=== PATIENT | male | born 1970 | race African-American/Black ===

== ENCOUNTER 2023-05-28 14:56 | Outpatient (RCR) | payer OTHER, SELFPAY | END 2023-08-12 09:00 | disposition home or self-care (01) | LOC: PT 14:56 | PROVIDERS: Family Provider Family Medicine; PCP Family Medicine; Visit Provider Orthopaedic Surgery | DX: Z98.890 Other specified postprocedural states (principal) | CPT/HCPCS: 97110; 97112; 97140; 97161 ==

== ENCOUNTER 2023-08-13 10:17 | Outpatient (RCR) | payer OTHER, SELFPAY | END 2023-09-07 10:06 | disposition home or self-care (01) | LOC: PT 10:17 | PROVIDERS: Family Provider Family Medicine; PCP Family Medicine; Visit Provider Orthopaedic Surgery | DX: Z98.890 Other specified postprocedural states (principal); M25.511 Pain in right shoulder | CPT/HCPCS: 97110; 97112; 97140 ==

== ENCOUNTER 2024-01-20 00:22 | Emergency (ER) | payer OTHER, SELFPAY ==
[2024-01-20 00:30] VITALS: BP 172/87; PULSE 87; TEMP 37.1; O2SAT 95; BMI 39.1
--- OUTSIDE RECORDS SUMMARY | 2024-01-20 00:30 | XMS_ITS | CCD ---
Author Organization [facility] CliniSyne Care Team Providers Care Mba Intern Name Role Phone SHAHLA BUTCHER Unavailable Unavailable NO FAMILY DOCTOR, NO FAMILY DOCTOR Unavailable Unavailable Salvador Marx Jr. Unavailable Rylee Berger Unavailable Salvador Marx Unavailable Bunsamy, DO Gore Primary Care Provider Bunting, DO Luisana Attending Provider LUISANA STUBBS Primary Care Physician Sharmila Russo Unavailable Unavailable Brown, Kwasi A Referring Unavailable Brown, Kwasi A Admitting Unavailable Brown, Kwasi A Attending Unavailable Brown, Kwasi A Referring Unavailable Brown, Kwasi A Admitting Unavailable Brown, Kwasi A Attending Unavailable BROWN, KWASI A Attending Unavailable BROWN, KWASI A Attending Unavailable Bunting, DO Gore Primary Care Provider Bunting, DO Luisana Attending Provider Bunting, Luisana Primary Care Unavailable Bunting, Luisana Admitting Unavailable Bunting, Luisana Attending Unavailable Bunting, Luisana Primary Care Unavailable Bunting, Luisana Admitting Unavailable Bunting, Luisana Attending Unavailable Bunting, Luisana Admitting Unavailable Bunting, Luisana Attending Unavailable Bunting, Luisana Primary Care Unavailable Medications Current Medications Medication Drug Class(es) Dates Sig (Normalized) Sig (Original) acetaminophen 325 mg / oxyCODONE hydrochloride 5 mg oral tablet (1 source) Opioid Agonist Start: 04-13-2023 Percocet 5 mg-325 mg oral tablet See Instructions, 40 tab(s), Refill(s) 0, 1-2 tab(s) Oral q4hr, [facility]/pharmacy #[id number], 180, cm, 03/26/23 12:11:00 EDT, Height/Length Dosing, 120, kg, 03/26/23 12:11:00 EDT, Weight Dosing Start Date: 04/13/23 Status: Ordered celecoxib 100 mg oral capsule (1 source) Nonsteroidal Anti-inflammatory Drug Start: 04-13-2023 take 1 capsule by mouth twice daily as needed for pain CeleBREX 100 mg Cap 100 mg = 1 cap(s), Oral, BID, PRN for pain, # 60 cap(s), Refills(s) 0, Pharmacy: [facility]/pharmacy #[id number], 180, cm, 03/26/23 12:11:00 EDT, Height/Length Dosing, 120, kg, 03/26/23 12:11:00 EDT, Weight Dosing Start Date: 04/13/23 Status: Ordered Daily Multi (2 sources) Start: 03-26-2023 take 1 tablet by mouth once daily Daily Multi 1 tab(s), Oral, Daily, Refill(s) 0, Prophylaxis Start Date: 03/26/23 Status: Ordered docusate sodium 100 mg oral capsule (1 source) Start: 04-13-2023 take 1 capsule by mouth twice daily as needed for constipation Colace 100 mg Cap 100 mg = 1 cap(s), Oral, BID, PRN for constipation, # 20 cap(s), Refills(s) 0, Pharmacy: [facility]/pharmacy #[id number], 180, cm, 03/26/23 12:11:00 EDT, Height/Length Dosing, 120, kg, 03/26/23 12:11:00 EDT, Weight Dosing Start Date: 04/13/23 Status: Ordered QUEtiapine 200 mg oral tablet (2 sources) Atypical Antipsychotic Start: 03-26-2023 take 1 tablet by mouth at bedtime quetiapine 200 mg Tab 200 mg = 1 tab(s), Oral, Bedtime, Refills(s) 0, Sleep Start Date: 03/26/23 Status: Ordered traZODone hydrochloride 50 mg oral tablet (15 sources) Serotonin Reuptake Inhibitor Start: 03-26-2023 take 1 tablet by mouth once daily at bedtime traZODONE 50 mg Tab 50 mg = 1 tab(s), Oral, Once a day (at bedtime), Refills(s) 0, Sleep Start Date: 03/26/23 Status: Ordered traZODone HCl 50 MG TAKE 2 TABLETS BY MOUTH EVERY DAY AT BEDTIME NEEDED FOR 90 DAYS for 90 days Active take 1 tablet by christina th once daily at bedtime as needed for sleep, then take 1 tablet by mouth once daily as needed for sleep traZODone HCl 50 MG TAKE 1 TABLET BY CHRISTINA TH EVERY DAY AT BEDTIME NEEDED FOR SLEEP MAY INCREASE TO 1 & 1/2 TABS p.o. qd prn for 90 day(s) Active traZODone HCl 50 MG 1.5 mg prn for 30 Active Problems Active Problems Problem Classification Problem Date Documented Da te Episodic/Chronic Disorders of lipid metabolism (19 sources) Hyperlipidemia; Translations: [Hyperlipidemia, unspecified] Onset: 05-09-2021 Resolved: 12-21-2021 Chronic Other nutritional; endocrine; and metabolic disorders (20 sources) Obesity; Translations: [Obesity, unspecified] Chronic Other nutritional; endocrine; and metabolic disorders (13 sources) Body mass index 30+ - obesity; Translations: [Body mass index (BMI) 37.0-37.9, adult] Chronic Other nutritional; endocrine; and metabolic disorders (11 sources) Obesity, unspecified; Translations: [Obesity (BMI 35.0-39.9 without comorbidity) E66.9] Onset: 05-09-2021 Resolved: 03-01-2022 Chronic Other nutritional; endocrine; and metabolic disorders (4 sources) Body mass index (BMI) 37.0-37.9, adult; Translations: [BMI 37.0-37.9, adult Z68.37] Onset: 06-01-2021 Resolved: 11-08-2021 Chronic Other nutritional; endocrine; and metabolic disorders (1 source) Body mass index (BMI) 34.0-34.9, adult Onset: 03-01-2022 Resolved: 03-01-2022 Chronic Residual codes; unclassified (13 sources) Sedative, hypnotic AND/OR anxiolytic-induced sleep disorder; 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 Residual codes; unclassified (13 sources) Insomnia; Translations: [Insomnia, unspecified] Episodic Residual codes; unclassified (6 sources) Insomnia, unspecified; Translations: [Insomnia G47.00] Onset: 05-09-2021 Resolved: 12-21-2021 Episodic Unclassified (2 sources) Encounter for pre-employment examination / Z02.1(ICD-9) Onset: 10-15-2017 Unclassified (1 source) Pure hypercholesterolemi a, unspecified / E78.00(ICD-9) Onset: 10-15-2017 Unclassified (1 source) Family hx of ischem heart dis and oth dis of the circ sys / Z82.49(ICD-9) Onset: 10-15-2017 Unclassified (1 source) Pain in right shoulder; Translations: [Pain in right shoulder] Onset: 02-07-2023 Past or Other Problems Problem Classification Problem Date Documented Da te Episodic/Chronic Unclassified (1 source) Encounter for pre-employment examination; Translations: [Encounter for pre-employment examination] Onset: 10-15-2017 Results Test Name Value Interpretation Reference Range Facility Free T4 (Free Thyroxine)Orde red By: Luisana Stubbs on 01-15-2024 Free T4 [Mass/Vol] 0.68 ng/dL Normal 0.61-1.12 [facility] Comment on above: Performed By: #### T 4F, TSH3 #### [address] Thyroid Stimulating HormoneO rdered By: Luisana Stubbs on 01-15-2024 TSH Qn 2.49 m[IU]/L Normal 0.45-5.33 [facility] Comment on above: Result Comment: PERF ORMED BY: [place] [address] PATHOLOGIST MANAGER AGENCY MENG HILTON M.D. Performed By: #### T 4F, TSH3 #### [place] [address] [place] Alanine aminotransferase [En zymatic activity/volume] in Serum or PlasmaOrdered By: Luisana Stubbs on 01-08-2024 ALT [Catalytic activity/Vol] 19 U/L Normal 7-52 [facility] Comment on above: Performed By: #### L IPID, CBC, CMP, PSAS #### [facility] [address] [place], [place] [id number] [place] Albumin [Mass/volume] in Ser um or Plasma by Bromocresol green (BCG) dye binding methoOrdered By: Luisana Bunting on 01-08-2024 Albumin BCG dye [Mass/Vol] 4.5 g/dL 3.5-5.7 [facility] Alkaline phosphatase [Enzyma tic activity/volume] in Serum or PlasmaOrdered By: Luisana Bunting on 01-08-2024 ALP [Catalytic activity/Vol] 82 U/L Normal 34-104 [facility] Comment on above: Performed By: #### L IPID, CBC, CMP, PSAS #### [facility] [address] [place] [address] Aspartate aminotransferase [ Enzymatic activity/volume] in Serum or PlasmaOrdered By: Luisana Bunting on 01-08-2024 AST [Catalytic activity/Vol] 22 U/L Normal 13-39 [facility] Comment on above: Performed By: #### L IPID, CBC, CMP, PSAS #### [facility] [address] [place] [address] Automated basophil %Ordered By: Luisana Bunting on 01-08-2024 Basophils/100 WBC (Bld) 0.6 % Normal . [facility] Comment on above: Performed By: #### L IPID, CBC, CMP, PSAS #### [facility] [address] [place] [address] Automated basophil countOrde red By: Luisana Bunting on 01-08-2024 Basophils (Bld) [#/Vol] 0.0 10*3/uL Normal 0.0-0.2 [facility] Comment on above: Result Comment: PERF ORMED BY: [place] [address] PATHOLOGIST MANAGER AGENCY MENG HILTON M.D. Performed By: #### L IPID, CBC, CMP, PSAS #### [address] Automated blood monocyte cou ntOrdered By: Luisana Bunting on 01-08-2024 Monocytes (Bld) [#/Vol] 0.4 10*3/uL Normal 0.0-0.8 [facility] Comment on above: Performed By: #### L IPID, CBC, CMP, PSAS #### [address] Automated eosinophil %Ordere d By: Luisana Bunting on 01-08-2024 Eosinophils/100 WBC (Bld) 1.5 % Normal . [facility] Comment on above: Performed By: #### L IPID, CBC, CMP, PSAS #### [address] Automated eosinophil countOr dered By: Luisana Bunting on 01-08-2024 Eosinophils (Bld) [#/Vol] 0.1 10*3/uL Normal 0.0-0.45 [facility] Comment on above: Performed By: #### L IPID, CBC, CMP, PSAS #### [address] Automated monocyte %Ordered By: Luisana Bunting on 01-08-2024 Monocytes/100 WBC (Bld) 10.8 % Normal . [facility] Comment on above: Performed By: #### L IPID, CBC, CMP, PSAS #### [address] Automated neutrophil %Ordere d By: Luisana Bunting on 01-08-2024 Neutrophils/100 WBC (Bld) 36.8 % Normal . [facility] Comment on above: Performed By: #### L IPID, CBC, CMP, PSAS #### [address] Bilirubin.total [Mass/volume ] in Serum or PlasmaOrdered By: Luisana Bunting on 01-08-2024 Bilirubin [Mass/Vol] 0.4 mg/dL Normal 0.3-1.0 [facility] Comment on above: Performed By: #### L IPID, CBC, CMP, PSAS #### [address] Calcium [Mass/volume] in Ser um or PlasmaOrdered By: Luisana Bunting on 01-08-2024 Calcium [Mass/Vol] 9.1 mg/dL Normal 8.6-10.3 [facility] Comment on above: Performed By: #### L IPID, CBC, CMP, PSAS #### [facility] [address] [place] [address] [place] Carbon dioxide, total [Moles /volume] in Serum or PlasmaOrdered By: Luisana Bunting on 01-08-2024 CO2 [Moles/Vol] 28.9 mmol/L Normal 21.0-31.0 [facility] Comment on above: Performed By: #### L IPID, CBC, CMP, PSAS #### [facility] [address] [place] [address] [place] Chloride [Moles/volume] in S johny or PlasmaOrdered By: Luisana Bunting on 01-08-2024 Chloride [Moles/Vol] 104 mmol/L Normal 98-107 [facility] Comment on above: Performed By: #### L IPID, CBC, CMP, PSAS #### [facility] [address] [place] [address] [place] Cholesterol [Mass/volume] in Serum or PlasmaOrdered By: Luisana Bunting on 01-08-2024 Cholesterol [Mass/Vol] 210 mg/dL High 140-200 [facility] Comment on above: Chol less than 200 m g/dl low riskChol 201-239 mg/dl borderline riskChol 240 mg/dl and greater high risk Result Comment: Chol less than 200 mg/dl low risk Chol 201-239 mg/dl borderline risk Chol 240 mg/dl and greater high risk Performed By: #### L IPID, CBC, CMP, PSAS #### [facility] [address] [place] [address] [place] Cholesterol in LDL Calc [Mas s/Vol]Ordered By: Luisana Bunting on 01-08-2024 Cholesterol in LDL [Mass/Vol] 131 mg/dL 0-100 [facility] Comment on above: LDL ATP III CLASSIFI CATIONLDL less than 100 mg/dL OptimalLDL 100-129 mg/dL Near or above optimalLDL 130-159 mg/dL Borderline highLDL 160-189 mg/dL HighLDL greater than 189 mg/dL Very high Cholesterol in VLDL Calc [Ma ss/Vol]Ordered By: Luisana Bunting on 01-08-2024 Cholesterol in VLDL [Mass/Vol] 11 mg/dL [facility] Complete Blood Count Auto Di ffon 01-08-2024 Mean Corpuscular HGB Conc 33.7 g/dL Normal 32.5-35.6 [facility] Comment on above: Performed By: #### L IPID, CBC, CMP, PSAS #### [address] NRBC% 0.1 /100{WBC} Normal 0-0.5 [facility] Comment on above: Performed By: #### L IPID, CBC, CMP, PSAS #### [address] Comprehensive Metabolic Pane yaya 01-08-2024 Albumin [Mass/Vol] 4.5 g/dL Normal 3.5-5.7 [facility] Comment on above: Performed By: #### L IPID, CBC, CMP, PSAS #### [address] GFR/1.73 sq M.predicted MDRD (S/P/Bld) [Vol rate/Area] mL/min/{1.73_m2} Normal [facility] Comment on above: Performed By: #### L IPID, CBC, CMP, PSAS #### [address] Creatinine [Mass/volume] in Serum or PlasmaOrdered By: Luisana Bunting on 01-08-2024 Creatinine [Mass/Vol] 1.06 mg/dL Normal 0.70-1.30 [facility] Comment on above: Performed By: #### L IPID, CBC, CMP, PSAS #### [address] Erythrocyte distribution wid th [Ratio] by Automated countOrdered By: Luisana Bunting on 01-08-2024 Erythrocyte distribution width (RBC) [Ratio] 14.2 % Normal 12.0-14.8 [facility] Comment on above: Performed By: #### L IPID, CBC, CMP, PSAS #### [facility] [address] Erythrocytes [#/volume] in B lood by Automated countOrdered By: Luisana Stubbs on 01-08-2024 RBC (Bld) [#/Vol] 4.26 10*6/uL Normal 3.90-5.60 [facility] Comment on above: Performed By: #### L IPID, CBC, CMP, PSAS #### [address] Glucose [Mass/volume] in Ser um or PlasmaOrdered By: Luisana Stubbs on 01-08-2024 Glucose [Mass/Vol] 97 mg/dL Normal 70-100 [facility] Comment on above: ADA recommended refe rence rangeRandom Glucose Reference Range is dependent on time and content of last meal. Glucose of more than 200 mg/dL in a nonstressed, ambulatory subject supports the diagnosis of Diabetes Mellitus. Result Comment: [place] om Glucose Reference Range is dependent on time and content of last meal. Glucose of more than 200 mg/dL in a nonstressed, ambulatory subject supports the diagnosis of Diabetes Mellitus. ADA recommended reference range Performed By: #### L IPID, CBC, CMP, PSAS #### [address] Hematocrit [Volume Fraction] of Blood by Automated countOrdered By: Luisana Stubbs on 01-08-2024 Hematocrit (Bld) [Volume fraction] 39.4 % Normal 38.8-50.0 [facility] Comment on above: Performed By: #### L IPID, CBC, CMP, PSAS #### [address] Hemoglobin [Mass/volume] in BloodOrdered By: Luisana Stubbs on 01-08-2024 Hemoglobin (Bld) [Mass/Vol] 13.3 g/dL Normal 13.0-17.0 [facility] Comment on above: Performed By: #### L IPID, CBC, CMP, PSAS #### [place] [address] [place] Leukocytes [#/volume] correc margie for nucleated erythrocytes in Blood by Automated counOrdered By: Luisana Stubbs on 01-08-2024 WBC corrected for nucl RBC Auto (Bld) [#/Vol] 4.1 10*3/uL 4.1-10.5 [facility] Leukocytes [#/volume] in Blo od by Automated countOrdered By: Luisana Stubbs on 01-08-2024 WBC (Bld) [#/Vol] 4.1 10*3/uL Normal 4.1-10.5 [facility] Comment on above: Performed By: #### L IPID, CBC, CMP, PSAS #### [facility] [address] Lipid Panelon 01-08-2024 LDL Cholesterol,Calculated 131 mg/dL High 0-100 [facility] Comment on above: Result Comment: LDL ATP III CLASSIFICATION LDL less than 100 mg/dL Optimal LDL 100-129 mg/dL Near or above optimal LDL 130-159 mg/dL Borderline high LDL 160-189 mg/dL High LDL greater than 189 mg/dL Very high Performed By: #### L IPID, CBC, CMP, PSAS #### [facility] [address] Triglyceride w/Reflex 55 mg/dL Normal 0-149 [facility] Comment on above: Result Comment: TRIG ATP III CLASSIFICATION TRIG less than 150 mg/dL Normal TRIG 150-199 mg/dL Borderline high TRIG 200-500 mg/dL High TRIG greater than 500 mg/dL Very high Standard traceable to the Center for Disease Conrtrol and Prevention (CDC) test method. Performed By: #### L IPID, CBC, CMP, PSAS #### [facility] [address] VLDL CHOLESTEROL 11 mg/dL Normal [facility] Comment on above: Performed By: #### L IPID, CBC, CMP, PSAS #### [facility] [address] Lymphocytes [#/volume] in Bl ood by Automated countOrdered By: Luisana Stubbs on 01-08-2024 Lymphocytes (Bld) [#/Vol] 2.0 10*3/uL Normal 1.00-4.8 [facility] Comment on above: Performed By: #### L IPID, CBC, CMP, PSAS #### [address] Lymphocytes/100 leukocytes i n Blood by Automated countOrdered By: Luisana Bunting on 01-08-2024 Lymphocytes/100 WBC (Bld) 50.3 % Normal . [facility] Comment on above: Performed By: #### L IPID, CBC, CMP, PSAS #### [address] MCH [Entitic mass] by Automa margie countOrdered By: Luisana Bunting on 01-08-2024 MCH (RBC) [Entitic mass] 31.1 pg Normal 27.5-35.2 [facility] Comment on above: Performed By: #### L IPID, CBC, CMP, PSAS #### [address] MCHC Auto (RBC) [Mass/Vol]Or dered By: Luisana Bunting on 01-08-2024 MCHC (RBC) [Mass/Vol] 33.7 g/dL 32.5-35.6 [facility] MCV [Entitic volume] by Auto mated countOrdered By: Luisana Bunting on 01-08-2024 MCV (RBC) [Entitic vol] 92.4 fL Normal 83.5-101 [facility] Comment on above: Performed By: #### L IPID, CBC, CMP, PSAS #### [address] Neutrophils [#/volume] in Bl ood by Automated countOrdered By: Luisana Bunting on 01-08-2024 Neutrophils (Bld) [#/Vol] 1.5 10*3/uL Low 1.8-7.7 [facility] Comment on above: Performed By: #### L IPID, CBC, CMP, PSAS #### [address] No Panel InformationOrdered By: Luisana Bunting on 01-08-2024 Estimated GFR (CKD-EPI) > 60.0 mL/Min [facility] Creatinine Clearance (Chem N/A [facility] Nucleated erythrocytes [Pres ence] in Blood by Automated countOrdered By: Luisana Stubbs on 01-08-2024 Nucleated RBC Auto Ql (Bld) 0.1 /100{WBC} 0-0.5 [facility] PSA Screen (Yearly Only)on 0 01-08-2024 PSA Screen (Yearly Only) 0.410 ng/mL Normal 0.000-4.000 [facility] Comment on above: Order Comment: Is pa tient <50 yrs? Medicare does not pay <50.: N What is the date of the last PSA Screen?: 09/17/2017 Is Medicare the insurance?: N Did you verify eligibility (Dx Time) check TestViewGp: YES TO ALL Result Comment: Seri al tumor marker results determined by assays using different manufacturers or methods may not be comparable. [facility] urban redevelopment specialist and method: Rea[employer]ync DXI, CHEMILUMINESCENT IMMUNOASSAY. PERFORMED BY: [place] [address] PATHOLOGIST MANAGER AGENCY MENG HILTON M.D. Performed By: #### L IPID, CBC, CMP, PSAS #### [address] Platelet mean volume [Entiti c volume] in Blood by Automated countOrdered By: Luisana Stubbs on 01-08-2024 Platelet mean volume (Bld) [Entitic vol] 8.1 fL Normal 6.6-10.1 [facility] Comment on above: Performed By: #### L IPID, CBC, CMP, PSAS #### [facility] [address] [place] [address] Platelets [#/volume] in Bloo d by Automated countOrdered By: Luisana Stubbs on 01-08-2024 Platelets (Bld) [#/Vol] 225 10*3/uL Normal 150-450 [facility] Comment on above: Performed By: #### L IPID, CBC, CMP, PSAS #### [facility] [address] [place] [address] Potassium [Moles/volume] in Serum or PlasmaOrdered By: Luisana Bunting on 01-08-2024 Potassium [Moles/Vol] 3.9 mmol/L Normal 3.5-5.1 [facility] Comment on above: Performed By: #### L IPID, CBC, CMP, PSAS #### [facility] [address] [place] [address] Prostate specific Ag [Mass/v olume] in Serum or PlasmaOrdered By: Luisana Bunting on 01-08-2024 Prostate specific Ag [Mass/Vol] 0.410 ng/mL 0.000-4.000 [facility] Comment on above: Serial tumor marker results determined by assays using different manufacturers or methods may not be comparable.[facility] urban redevelopment specialist and method:Re[employer]ync DXI, CHEMILUMINESCENT IMMUNOASSAY. Protein [Mass/volume] in Ser um or PlasmaOrdered By: Luisana Bunting on 01-08-2024 Protein [Mass/Vol] 7.0 g/dL Normal 6.4-8.9 [facility] Comment on above: Performed By: #### L IPID, CBC, CMP, PSAS #### [address] Serum globulin measurement b y calculation (mass/volume)Ordered By: Luisana Bunting on 01-08-2024 Globulin (S) [Mass/Vol] 2.5 g/dL Normal [facility] Comment on above: Performed By: #### L IPID, CBC, CMP, PSAS #### [facility] [address] [place] [address] Serum or plasma albumin/glob ulin mass ratioOrdered By: Luisana Bunting on 01-08-2024 Albumin/Globulin [Mass ratio] 1.8 {ratio} Normal [facility] Comment on above: Performed By: #### L IPID, CBC, CMP, PSAS #### [facility] [address] [place] [address] Serum or plasma anion gap de terminationOrdered By: Luisana Bunting on 01-08-2024 Anion gap [Moles/Vol] 11.0 mmol/L Normal 6.0-15.0 [facility] Comment on above: Performed By: #### L IPID, CBC, CMP, PSAS #### [facility] [address] [place] [address] Serum or plasma high density lipoprotein (HDL) cholesterol measurementOrdered By: Luisana Bunting on 01-08-2024 Cholesterol in HDL [Mass/Vol] 68 mg/dL Normal 23-92 [facility] Comment on above: HDL CHOL ATP-III CLA SSIFICATION Cardiovascular RiskHDL > or equal to 60 mg/dL LOWHDL < 40 mg/dL HIGH Result Comment: HDL CHOL ATP-III CLASSIFICATION Cardiovascular Risk HDL > or equal to 60 mg/dL LOW HDL < 40 mg/dL HIGH Performed By: #### L IPID, CBC, CMP, PSAS #### [address] Serum or plasma total choles terol/high density lipoprotein (HDL) cholesterol mass ratOrdered By: Luisana Bunting on 01-08-2024 Cholesterol.total/Ana sterol in HDL [Mass ratio] 3.1 {ratio} Normal <5.0 [facility] Comment on above: Result Comment: PERF ORMED BY: [place] [address] PATHOLOGIST MANAGER AGENCY MENG HILTON M.D. Performed By: #### L IPID, CBC, CMP, PSAS #### [facility] [address] [place] [address] Sodium [Moles/volume] in Ser um or PlasmaOrdered By: Luisana Bunting on 01-08-2024 Sodium [Moles/Vol] 140 mmol/L Normal 136-145 [facility] Comment on above: Performed By: #### L IPID, CBC, CMP, PSAS #### [facility] [address] [place] [address] Triglyceride [Mass/volume] i n Serum or PlasmaOrdered By: Luisana Bunting on 01-08-2024 Triglyceride [Mass/Vol] 55 mg/dL 0-149 [facility] Comment on above: TRIG ATP III CLASSIF ICATIONTRIG less than 150 mg/dL NormalTRIG 150-199 mg/dL Borderline highTRIG 200-500 mg/dL High TRIG greater than 500 mg/dL Very highStandard traceable to the Center for Disease Conrtrol and Prevention (CDC) test method. Urea nitrogen [Mass/volume] in Serum or PlasmaOrdered By: Luisana Stubbs on 01-08-2024 Urea nitrogen [Mass/Vol] 15 mg/dL Normal 7-25 [facility] Comment on above: Performed By: #### L IPID, CBC, CMP, PSAS #### [facility] [address] [place] [id number] [facility] Operative Reporton 3 Operative Report Patient: MAGAN LYNN Age: 52 years Sex: Male : 1970 Associated Diagnoses: None Author: MD Topher, Xochitl Boyce Postoperative Information Date/ Time: 04/13/2023 07:00:00 Preoperative Diagnosis: Acute postoperative pain., Per surgeon request for post-op pain management. Postoperative Diagnosis: Acute postoperative pain, Per surgeon request for post-op pain management. Procedure: Interscalene nerve block. Anesthesia Method: Local, Monitored anesthesia care. Performed by: MD Obando Ahmad F. Medications: Midazolam 2 mg. Complications: None. Notes: The patient was interviewed and examined prior to the planned operation. Anesthesia options were discussed including the peripheral nerve block of the brachial plexus in the interscalene region for postoperative analgesia. This discussion included a description of the procedure, risks and benefits, as well as alternatives to the block. The patient's questions were addressed and the patient elected to proceed with the interscalene nerve block. After a timeout, the patient was placed in the recumbent position and monitored with continuous pulse oximetry, non-invasive blood pressure, and electrocardiography. Following the time-out, the patient's pertinent anatomic landmarks were identified and marked with a felt-tipped pen before the procedure. The lateral neck and upper shoulder were prepped with CHG and sterilely draped. A 2 x 22 gauge Stimuplex needle was introduced under ultrasound guidance with a stimulator attached and operating. The patient was questioned intermittently and reported no paresthesias. With the needle held in place, and with intermittent attempts for aspiration of blood, 20 cc of 0.5% Ropivacaine was injected at 5cc intervals. Negative aspiration for blood was confirmed at every 5cc interval. Loss of twitch was observed at 0.4 mA. No signs or symptoms of intravascular or intraneural injection were evidenced. The patient tolerated the procedure well without complications. . [facility] Comment on above: Result Comment: Elec tronically Signed By: MD Obando Ahmad F\.br\Date and Time Signed: 04/19/23 13:14 EDT Progress Note-Physicianon Progress Note-Physician Patient: MAGAN LYNN Age: 52 years Sex: Male : 1970 Associated Diagnoses: None Author: MD Obando Ahmad F Postoperative Information Postoperative disposition: Postoperative disposition: To PACU. Optimetrix number: Optimetrix number [id number]. Anesthetic utilized: General. Health Status Allergies: Allergic Reactions (Selected) No Known Allergies Physical Examination VS/Measurements Pain Assessment: Controlled. General: Awake, Alert, Appropriate. Respiratory: Adequate air exchange. Cardiovascular: Stable, Normal peripheral perfusion. Neurological: Normal sensory function, Normal motor function. Assessment Anesthetic outcome No anesthetic complications noted. Adequate pain relief. able to void without difficulty, able to ambulate with assist, tolerating PO intake, no N/V. Review / Management Condition: Stable. Plan Transfer/Discharge: Transfer/Discharge Discharge when meets criteria ( To home ). [facility] Comment on above: Result Comment: Elec tronically Signed By: MD Obando Ahmad F\.br\Date and Time Signed: 04/19/23 13:16 EDT Progress Note-Physician Patient: MAGAN LYNN Age: 52 years Sex: Male : 1970 Associated Diagnoses: None Author: MD Obando Ahmad F Preoperative Information Time patient last ate or drank:=== (npo 8 hours) Anesthesia history: Patient history: No prior anesthesia problems. Re-evaluation prior to induction: Completed, Initial evaluation reviewed. Review of Systems Respiratory: No shortness of breath. Cardiovascular: No chest pain. Hematology/Lymphatics : No bruising tendency, No bleeding tendency. Health Status Allergies: Allergic Reactions (All) No Known Allergies Current medications: (Selected) Prescriptions Prescribed CeleBREX 100 mg Cap: 100 mg = 1 cap(s), Oral, BID, PRN for pain, # 60 cap(s), Refills(s) 0, [id number] 180, cm, 03/26/23 12:11:00 EDT, Height/Length Dosing, 120, kg, 03/26/23 12:11:00 EDT, Weight Dosing Colace 100 mg Cap: 100 mg = 1 cap(s), Oral, BID, PRN for constipation, # 20 cap(s), Refills(s) 0, [id number], 180, cm, 03/26/23 12:11:00 EDT, Height/Length Dosing, 120, kg, 03/26/23 12:11:00 EDT, Weight Dosing Percocet 5 mg-325 mg oral tablet: See Instructions, 40 tab(s), Refill(s) 0, 1-2 tab(s) Oral q4hr, [facility]/pharmacy #[id number], 180, cm, 03/26/23 12:11:00 EDT, Height/Length Dosing, 120, kg, 03/26/23 12:11:00 EDT, Weight Dosing Documented Medications Documented Daily Multi: 1 tab(s), Oral, Daily, Refill(s) 0, Prophylaxis quetiapine 200 mg Tab: 200 mg = 1 tab(s), Oral, Bedtime, Refills(s) 0, Sleep traZODONE 50 mg Tab: 50 mg = 1 tab(s), Oral, Once a day (at bedtime), Refills(s) 0, Sleep Problem list: No problem items selected or recorded. Histories Past Medical History: No active or resolved past medical history items have been selected or recorded. Family History: No family history items have been selected or recorded. Procedure history: Rotator cuff repair ([id number]) on 04/13/2023 at 52 Years. Testicular torsion ([id number]). Social History Social & Psychosocial Habits Alcohol 03/26/2023 Risk Assessment: Low Risk 03/26/2023 Use: Current Type: Beer Frequency: 1-2 times per week Tobacco 03/26/2023 Risk Assessment: Denies Tobacco Use . Physical Examination Please see preop flow sheet Airway: Mallampati classification: II (soft palate, fauces, uvula visible). Respiratory: Lungs are clear to auscultation. Cardiovascular: Normal rate, Regular rhythm. Neurologic: Alert. Review / Management Results review Interpretation of Outside Results Chest x-ray results Radiology results ECG interpretation Condition Plan [place] [employer] (ASA) physical status classification: Class III. Anesthetic Preoperative Plan Anesthesia: General. . Anesthetic plan, risks, benefits, and alternatives discussed with the patient and/or family. Risks discussed: nausea, vomiting, headache, sore throat, dental injury, serious complications. Patient verbalized understanding. Communication: face to face with patient 5 minutes. [facility] Comment on above: Result Comment: Elec tronically Signed By: MD Topher, Xochitl Boyce\.br\Date and Time Signed: 04/19/23 13:13 EDT IntraOperative Documentson 0 04-18-2023 IntraOperative Documents [id number]# 1.00CD:127 [facility] Consent for Anesthesiaon Consent for Anesthesia [id number] .00CD:127 [facility] Discharge Instructionson Discharge Instructions [id number]#1 .00CD:127 [facility] IntraOperative Documentson 0 04-17-2023 IntraOperative Documents [id number]#1 .00CD:127 [facility] Main OR Intraoperative Recor don 04-17-2023 Main OR Intraoperative Record [facility] Preoperative Documentson Preoperative Documents [id number] .00CD:127 [facility] Consent for Treatmenton Consent for Treatment [id number]#1 .00CD:127 [facility] Discharge Instructionson Discharge Instructions MAGAN LYNN :1970 Visit Date:04/13/2023 Inpatient Discharge Instructions Your Care Team Admitting Physician - Kwasi Johnson DO Referring Physician - Kwasi Johnson DO Reason for Your Visit RIGHT SHOULDER ROTOR CUFF TEAR This Is Your Medications List acetaminophen-oxycodo ne (Percocet 5 mg-325 mg oral tablet) celecoxib (CeleBREX 100 mg Cap) docusate (Colace 100 mg Cap) multivitamin with minerals (Daily Multi) quetiapine (quetiapine 200 mg Tab) trazodone (traZODONE 50 mg Tab) What to do next Instructions From Your Doctor No qualifying data available. New Follow Up Appointments after Discharge Follow Up with Kwasi Johnson DO, ORT When: Where: [address] [place] [address]- Medications What How Much When Instructions Next Dose New acetaminophen-oxycodo ne (Percocet 5 mg-325 mg oral tablet) See instructions 1-2 tab(s) Oral q4hr Pickup at [facility]/pharmacy #[id number] take with food New celecoxib (CeleBREX 100 mg Cap) 1 Capsules By Mouth 2 times a day as needed for for pain Pickup at [facility]/pharmacy #[id number] New docusate (Colace 100 mg Cap) 1 Capsules By Mouth 2 times a day as needed for for constipation Pickup at [facility]/pharmacy #[id number] Unchanged multivitamin with minerals (Daily Multi) 1 Tablets By Mouth Every day Unchanged quetiapine (quetiapine 200 mg Tab) 1 Tablets By Mouth At bedtime Unchanged trazodone (traZODONE 50 mg Tab) 1 Tablets By Mouth Once a day (at bedtime) Pharmacy Information [facility]/pharmacy #[id number]: [address], [place] [phone] Devices Implanted/Removed This Visit Notice: You have devices implanted this visit that may not be MRI compatible. Implanted SHOULDER ARTHROSCOPY W/ POSSIBLE REPAIR Shoulder R 2.6 FIBER DELANEY RC (BLUE) 04/13/2023 ANCHOR 2.6 FIBERTAK BLUE/BLACK 04/13/2023, MR Safe - YO: {[id number]{17 }[id number] ANCHOR 4.75 SWIVELLOCK [AR-[id number]] 04/13/2023, MR Alberta Gonzalez UDI: {[id number]{17 }[id number]{[id number] ANCHOR 4.75 SWIVELLOCK [[id number]] 04/13/2023, MR Alberta Gonzalez UDI: {[id number]{17 }[id number]{[id number] Body Site Undefined IMPLANT LOOP N TACK TENDOESIS SYSTEM 04/13/2023, MR Alberta Gonzalez UDI: {[id number] Common Emergency Awareness Tips IS IT A STROKE? Act FAST and Check for these signs: FACE Does the face look uneven? ARM Does one arm drift down? SPEECH Does their speech sound strange? TIME Call at any sign of stroke Heart Attack Signs Chest discomfort: Most heart attacks involve discomfort in the center of the chest and lasts more than a few minutes, or goes away and comes back. It can feel like uncomfortable pressure, squeezing, fullness or pain. Discomfort in upper body: Symptoms can include pain or discomfort in one or both arms, back, neck, jaw or stomach. Shortness of breath: With or without discomfort. Other signs: Breaking out in a cold sweat, nausea, or lightheaded. Remember, MINUTES DO MATTER. If you experience any of these heart attack warning signs, call to get immediate medical attention! Patient Portal You may access all of your results and other medical record information on our secure patient portal. If you are not signed up for this yet, please contact [employer] at [phone] to get signed up today. Patient Name: MAGAN LYNN I have received this information and my questions have been answered. Patient/Representativ e Name: Patient/Representativ e Signature: Relationship to Patient: Witness Name/Signature: Date: [facility] Comment on above: Result Comment: Elec tronically Signed By: Santos SOLER, Ivonne Khan\.br\Date and Time Signed: 04/13/23 09:56 EDT H&P Updateon 04-13-2023 H&P Update [id number] .00CD:127 [facility] Inpatient Patient Summaryon 04-13-2023 Inpatient Patient Summary [place] [id number] [facility] Clinical Discharge Instructions PERSON INFORMATION Name: MAGAN LYNN [facility]#:[id number] PHYSICIANS Admitting Physician: Kwasi Johnson DO Attending Physician: Kwasi Johnson DO PCP: LUISANA STUBBS DO Discharge Diagnosis: Comment: PATIENT EDUCATION INFORMATION Instructions: Cheikh Johnson - After Your Shoulder Arthroscopy (Custom) Medication Leaflets: Follow up: MEDICATION LIST New Medications [id number], [address], [place] [phone], [phone] acetaminophen-oxycodo ne (Percocet 5 mg-325 mg oral tablet) 1-2 tab(s) Oral q4hr. Refills: 0. celecoxib (CeleBREX 100 mg Cap) 1 Capsules By Mouth 2 times a day as needed for pain. Refills: 0. docusate (Colace 100 mg Cap) 1 Capsules By Mouth 2 times a day as needed for constipation. Refills: 0. Medications to Continue with No Changes Other Medications multivitamin with minerals (Daily Multi) 1 Tablets By Mouth every day. quetiapine (quetiapine 200 mg Tab) 1 Tablets By Mouth at bedtime. trazodone (traZODONE 50 mg Tab) 1 Tablets By Mouth once a day (at bedtime). Comment: [facility] Main OR PACU I [facility] Main OR PACU I Record PACU Phase I Docum ent Type FT Summary Primary Physician: Kwasi Johnson DO Finalized Date/Time: 04/13/23 11:20:35 Pt. Name: MAGAN LYNN/Sex: 1970 Male Med Rec #: [id number] Physician: Kwasi Johnson DO Financial #: [id number] Pt. Type: A Room/Bed: [place] [address] Admit/Disch: 04/13/23 05:51:36 - Institution: Case Times PACU I FT Pre-Care Text: Identifies barriers to communication and implements measures to provide psychological support Develops individualized plan of care, and ensures continuity of care Maintains patient's dignity and privacy, and maintains patient confidentiality Identifies and reports philosophical, cultural, and spiritual beliefs and values Identifies individual values and wishes concerning care Implements aseptic technique, and administers prescribed antibiotic therapy and immunizing agents as ordered Evaluates postoperative tissue perfusion Implements thermoregulation measures, and monitors body temperature Evaluates postoperative respiratory status Evaluates postoperative cardiac status Evaluates postoperative neurological status Assesses pain control, collaborated in initiating patient-controlled analgesia and implements alternative methods of pain control Verifies allergies, administers prescribed medications and solutions, evaluates response to medications Entry 1 In PACU I 04/13/23 09:51:00 Discharge from PACU 04/13/23 10:21:00 I Last Modified By: Mansi Wilkinson RN 04/13/23 10:24:18 Post-Care Text: The patient demonstrates knowledge of the expected response to the operative or invasive procedure The patient's care is consistent with the individualized perioperative plan of care The patient's right to privacy is maintained The patient's value system, lifestyle, ethnicity, and culture are considered, respected, and incorporated into the perioperative plan of care The patient participates in decisions affecting his or her perioperative plan of care The patient is free from signs and symptoms of infection The patient has wound/tissue perfusion consistent with or improved from baseline levels established preoperatively The patient is at or returning to normothermia at the conclusion of the immediate postoperative period The patient's respiratory function is consistent with or improved from baseline levels established preoperatively The patient's cardiovascular status is consistent with or improved from baseline levels established preoperatively The patient's cardiovascular status is consistent with or improved from baseline levels established preoperatively The patient demonstrates and/or reports adequate pain control throughout the perioperative period The patient received appropriate medication(s), safely administered during the perioperative period Acuity Level PACU I FT Entry 1 Start Time 04/13/23 09:51:00 Stop Time 04/13/23 10:21:00 Acuity Level Acuity Level I Last Modified By: Yanni Wilburn RN 04/13/23 11:20:32 Finalized By: Yanni Wilburn RN Document Signatures Signed By: Mansi Wilkinson RN 04/13/23 10:24 Yanni Wilburn RN 04/13/23 11:20 [facility] Main OR PACU II [facility] Main OR PACU II Record PACU Phase II Document Type FT Summary Primary Physician: Kwasi Johnson DO Finalized Date/Time: 04/13/23 12:33:31 Pt. Name: MAGAN LYNN/Sex: 1970 Male Med Rec #: [id number] Physician: Kwasi Johnson DO Financial #: [id number] Pt. Type: A Room/Bed: [place] [address] Admit/Disch: 04/13/23 05:51:36 - 04/13/23 12:15:00 Institution: Case Times PACU II FT Pre-Care Text: Identifies barriers to communication and implements measures to provide psychological support and determines knowledge level Develops individualized plan of care, and ensures continuity of care Maintains patient's dignity and privacy, and maintains patient confidentiality Identifies and reports philosophical, cultural, and spiritual beliefs and values Identifies individual values and wishes concerning care administers prescribed antibiotic therapy and immunizing agents as ordered, Evaluates postoperative tissue perfusion Implements thermoregulation measures, and monitors body temperature Evaluates postoperative respiratory status Evaluates postoperative cardiac status Evaluates postoperative neurological status Assesses pain control, collaborated in initiating patient-controlled analgesia and implements alternative methods of pain control Verifies allergies, administers prescribed medications and solutions, evaluates response to medications Entry 1 In PACU II 04/13/23 10:30:00 Discharge from PACU 04/13/23 12:15:00 II Outcomes Met? Yes Last Modified By: Ivonne Graham RN 04/13/23 12:33:29 Post-Care Text: The patient demonstrates knowledge of the expected response to the operative or invasive procedure The patient's care is consistent with the individualized perioperative plan of care The patient's right to privacy is maintained The patient's value system, lifestyle, ethnicity, and culture are considered, respected, and incorporated into the perioperative plan of care The patient participates in decisions affecting his or her perioperative plan of care. The patient is free from signs and symptoms of infection The patient has wound/tissue perfusion consistent with or improved from baseline levels established preoperatively The patient is at or returning to normothermia at the conclusion of the immediate postoperative period The patient's respiratory function is consistent with or improved from baseline levels established preoperatively The patient's cardiovascular status is consistent with or improved from baseline levels established preoperatively The patient's neurological status is consistent with or improved from baseline levels established preoperatively The patient demonstrates and/or reports adequate pain control throughout the perioperative period The patient received appropriate medication(s), safely administered during the perioperative period Finalized By: Ivonne Graham RN Document Signatures Signed By: Ivonne Graham RN 04/13/23 12:33 [facility] [place] Main OR Preoperative Recordo n 04-13-2023 Main OR Preoperative Record PreOp Document Type FT Summary Primary Physician: Kwasi Johnson DO Finalized Date/Time: 04/13/23 09:55:48 Pt. Name: MAGAN LYNN/Sex: 1970 Male Med Rec #: [id number] Physician: Kwasi Johnson DO Financial #: [id number] Pt. Type: A Room/Bed: [facility] Admit/Disch: 04/13/23 05:51:36 - Institution: Case Times PreOp FT Pre-Care Text: Verifies consent for planned procedure, identifies individual values and wishes concerning care, includes family members in perioperative teaching Entry 1 Patient Times. In Pre Surgery 04/13/23 05:55:00 Out Pre Surgery 04/13/23 07:42:00 Outcomes Met? Yes Last Modified By: Noel Ac 04/13/23 09:55:46 Post-Care Text: The patient participates in decisions affecting his or her perioperative plan of care Finalized By: Noel Ac Document Signatures Signed By: Noel Ac 04/13/23 09:55 [facility] Monitor [facility] 04-13-2023 Monitor Record [id number]# 1.00CD:127 [facility] Operative Reporton Operative Report Patient: MAGAN LYNN Age: 52 years Sex: Male : 1970 Associated Diagnoses: None Author: Kwasi Johnson DO DATE OF SURGERY: 04/13/2023 SURGEON: Kwasi Johnson D.O. VENETIAN BLIND TAPE CUTTER: Henry Tellez CFA PREOPERATIVE DIAGNOSIS: Rotator cuff tear, SLAP tear, right shoulder POSTOPERATIVE DIAGNOSIS: Rotator cuff tear, SLAP tear, right shoulder PROCEDURE: 1. Examination under anesthesia, right shoulder 2. Right shoulder diagnostic arthroscopy 3. Arthroscopic rotator cuff repair 4. Arthroscopic biceps tenodesis 5. Arthroscopic limited debridement 6. Arthroscopic subacromial decompression with acromioplasty ANESTHESIA: General with regional block ANESTHESIOLOGIST: Jordy BEAR and Xochitl Obando MD IMPLANTS: 1. Rotator cuff repair: Arthrex 2.6 RC FiberTak anchor x 2 and 4.75 mm biocomposite SwiveLock anchors x 2 2. Biceps tenodesis: Arthrex biceps tenodesis button OPERATIVE INDICATIONS: Magan is a 52-year-old [id number] male who has had persistent pain in the right shoulder despite conservative measures. He injured the shoulder while lifting weights earlier this year. MRI of the right shoulder was consistent with a full-thickness tear of the supraspinatus. His pain affects her activities of daily living, ability to sleep at night, and quality of life. He agreed to proceed with the above procedure after a discussion of the risks, benefits, complications, alternatives, and expectations. Please see office notes for further details. PROCEDURE IN DETAIL: The correct operative site was identified and marked in the preoperative holding area. The patient was administered intravenous antibiotics in accordance with SCIP protocol and was also administered 1 g of tranexamic acid intravenously. The patient was transported to the regional block room and administered a regional anesthetic nerve block by the anesthesiologist. I requested the regional block to assist with intraoperative and postoperative pain control. The patient was transported to the operating room, placed supine on the operating room table, and administered general anesthetic. After adequate anesthesia was obtained, the patient was placed into the beachchair position with all bony prominences well-padded. The head was secured in the padded chatterjee. Surgical timeout was performed with all required personnel present. The operative shoulder was examined and found to have full forward flexion, abduction, internal and external rotation. No anterior or posterior instability. The operative upper extremity was prepped and draped in the usual sterile fashion. The forearm was secured in the Spider tenet pneumatic arm chatterjee. Landmarks were demarcated. The glenohumeral joint was insufflated with 20 mL of injectable saline utilizing a spinal needle inserted posteriorly. A standard posterior portal was made. The arthroscope was introduced into the glenohumeral joint. An anterior portal in the rotator interval was made with outside-in technique using spinal needle localization. A 7 mm cannula was placed at the anterior portal. A hook probe was inserted and a diagnostic arthroscopy was carried out with the findings as noted below: 1. Superior labrum and biceps: Detachment of the superior labrum at the biceps anchor extending posteriorly to 11:00. The biceps tendon was free of intrasubstance splitting or tearing. The tendon was appropriately positioned within the bicipital groove. 2. Labrum: Mild fraying of the anterior labrum from the biceps anchor to 3:00. Remainder of the anterior labrum intact. Posterior labrum, inferior labrum intact. 3. Articular surfaces: Humeral head and glenoid were free of articular changes. 4. Rotator cuff: Full-thickness crescent-shaped tear of the supraspinatus. The tendon was retracted to the medial aspect of the greater tuberosity. Subscapularis, infraspinatus intact. 5. Axillary recess free of loose bodies. Rotator interval free of significant pathology. Attention was then turned to the biceps tenodesis. The Arthrex Loop N Tack tenodesis implant system was utilized. Suture was passed into the joint through the anterior portal above the biceps tendon and then retrieved beneath the biceps tendon. The suture was loaded into the loop and the loop was cinched onto the tendon. The suture was loaded into the passer and placed into the joint once again underneath the biceps tendon. The passer was then pierced through the biceps tendon in its mid substance posterior to the loop and the suture was retrieved. The biceps tendon was then released from the superior labrum with arthroscopic scissors. A punch was used to create a socket for the anchor just above the upper border of the subscapularis insertion site. The suture was loaded into the swivel lock anchor and the anchor was inserted. The end of the biceps tendon was then debulked with the [place] wand. The superior and anterior labrum were debrided with a motorized shaver. The undersurface (more content not included)... [facility] Comment on above: Result Comment: Elec tronically Signed By: Kwasi Johnson DO\.br\Date and Time Signed: 04/13/23 14:50 EDT Outpatient Surgery Discharge Instructionon 04-13-2023 Outpatient Surgery Discharge Instruction [place] [id number] Patient Discharge Instructions PERSON INFORMATION Name: MAGAN LYNN Date of : 1970 Current Date: 04/13/2023 09:41:14 PHYSICIANS Admitting Physician: Kwasi Johnson DO Discharge Diagnosis: SHANE MAGAN has been given the following list of follow-up instructions, prescriptions, and patient education materials: IF UNABLE TO CONTACT YOUR PHYSICIAN AND YOU FEEL IT IS AN EMERGENCY, GO TO THE NEAREST EMERGENCY ROOM OR CALL 911 I, MAGAN LYNN, have received the attached patient education materials/instruction s and have verbalized understanding: May we do a follow up call? Yes No I was present when discharge instructions were given Patient Signature Date Clinican/Nurse Signature Date Follow up: Pharmacy Information: You may receive a survey from [employer] asking you to rate your care experience. Your feedback is important and will help us understand what we do well and how we can improve the quality of care we provide to you, your loved ones and our community. It?s an honor to serve you. Thank you for choosing [facility] HERE ARE THE MEDICATION CHANGES THAT OCCURRED DURING YOUR HOSPITAL STAY New Medications [id number], [address], [place] [id number], [phone] acetaminophen-oxycodo ne (Percocet 5 mg-325 mg oral tablet) 1-2 tab(s) Oral q4hr. Refills: 0. celecoxib (CeleBREX 100 mg Cap) 1 Capsules By Mouth 2 times a day as needed for pain. Refills: 0. docusate (Colace 100 mg Cap) 1 Capsules By Mouth 2 times a day as needed for constipation. Refills: 0. Medications to Continue with No Changes Other Medications multivitamin with minerals (Daily Multi) 1 Tablets By Mouth every day. quetiapine (quetiapine 200 mg Tab) 1 Tablets By Mouth at bedtime. trazodone (traZODONE 50 mg Tab) 1 Tablets By Mouth once a day (at bedtime). PATIENT EDUCATION INFORMATION Instructions: [place], [place] [facility] AFTER YOUR SHOULDER ARTHROSCOPY 1. Diet: Begin with a liquid diet and advance to your normal diet as tolerated. 2. Activity: You may remove your sling for bathing and to perform gentle range of motion exercises for the hand, wrist, and elbow. Bend and straighten your elbow and wrist several times per day to minimize stiffness. Keep your elbow in close to your side when performing these exercises. Do not move your shoulder until instructed by your surgeon. Swelling after surgery is normal and this will gradually decrease over time. All sports activities are discouraged, at least until your first post-operative visit at which time we will discuss how and when to resume sports. 3. Driving: Driving is legal. If you are involved in an accident, you must be able to prove that you maintained full control of your vehicle. For this reason, it is advised that you do not drive until your strength returns. You should not operate a vehicle or heavy machinery if you are taking narcotic pain medication. 4. Pain: If pain persists despite rest, elevation, and medication, contact your surgeon. You will be given a prescription for pain medications prior to leaving the hospital. Please inform us of any known drug allergy. If you have any problems with the medication, it should be discontinued and our office notified. The sensation of splashing of fluid inside the joint is not cause for concern. It represents residual fluids from surgery and they will be absorbed. Elevation of the arm and application of an ice pack will minimize swelling and discomfort in the first 48 hours after surgery. 5. Bandage: Soft compression dressing has been applied to your shoulder. This dressing should be comfortable and absorb any leakage of fluid or blood from your operated shoulder. Although the dressing may become moist or blood stained, this is not usually a cause for concern. If this persists, notify your surgeon. You may remove the dressing 48 hours after your surgery. If you have a bandage in your armpit, leave this in place until follow up. Apply betadine and band-aids to the small incisions once or twice daily as needed. 6. Incisions: The portals of entry may be sore and develop bruising over the next several days. The bruising eventually resolves and does not require any special care. Do not apply creams or lotions to your shoulder. Your portals will heal well on their own. 7. Bathing: You may shower 48 hours after surgery. Bathing or soaking in water should be avoided until your first post-operative visit. 8. Precautions: If y (more content not included)... Normal [place] Patient Education - Texton 0 04-13-2023 Patient Education - Text [place], [place] [facility] AFTER YOUR SHOULDER ARTHROSCOPY 1. Diet: Begin with a liquid diet and advance to your normal diet as tolerated. 2. Activity: You may remove your sling for bathing and to perform gentle range of motion exercises for the hand, wrist, and elbow. Bend and straighten your elbow and wrist several times per day to minimize stiffness. Keep your elbow in close to your side when performing these exercises. Do not move your shoulder until instructed by your surgeon. Swelling after surgery is normal and this will gradually decrease over time. All sports activities are discouraged, at least until your first post-operative visit at which time we will discuss how and when to resume sports. 3. Driving: Driving is legal. If you are involved in an accident, you must be able to prove that you maintained full control of your vehicle. For this reason, it is advised that you do not drive until your strength returns. You should not operate a vehicle or heavy machinery if you are taking narcotic pain medication. 4. Pain: If pain persists despite rest, elevation, and medication, contact your surgeon. You will be given a prescription for pain medications prior to leaving the hospital. Please inform us of any known drug allergy. If you have any problems with the medication, it should be discontinued and our office notified. The sensation of splashing of fluid inside the joint is not cause for concern. It represents residual fluids from surgery and they will be absorbed. Elevation of the arm and application of an ice pack will minimize swelling and discomfort in the first 48 hours after surgery. 5. Bandage: Soft compression dressing has been applied to your shoulder. This dressing should be comfortable and absorb any leakage of fluid or blood from your operated shoulder. Although the dressing may become moist or blood stained, this is not usually a cause for concern. If this persists, notify your surgeon. You may remove the dressing 48 hours after your surgery. If you have a bandage in your armpit, leave this in place until follow up. Apply betadine and band-aids to the small incisions once or twice daily as needed. 6. Incisions: The portals of entry may be sore and develop bruising over the next several days. The bruising eventually resolves and does not require any special care. Do not apply creams or lotions to your shoulder. Your portals will heal well on their own. 7. Bathing: You may shower 48 hours after surgery. Bathing or soaking in water should be avoided until your first post-operative visit. 8. Precautions: If you develop fever (101 degrees or above), increasing pain (not relieved by rest, elevation, ice, and medication as prescribed), redness or swelling in your shoulder or arm, please contact the office or the hospital. If you notice increased drainage from the operative portals after the third day, this should also be reported. 9. Return Visit: Your first post-operative follow-up appointment is generally between 7 and 14 days after discharge from the hospital. You will be given an appointment card with your appointment information. Do not hesitate to call the office or the hospital if any problems or questions arise before your appointment. Kwasi Johnson, DO [facility] [address] [place] [address] Reviewed: Normal [place] Consent for Procedure/Surger yon 04-12-2023 Consent for Procedure/Surgery [id number]:127 Normal [place] XR Chest 2 Viewson 3 XR Chest 2 Views Exam Date/Time: 03/26/2023 10:04 EDT Reason for Exam: P.A.T. Report IMPRESSION: There are no acute cardiopulmonary changes. CLINICAL HISTORY: P.A.T. EXAMINATION: XR Chest 2 Views COMPARISON: FINDINGS: The cardiomediastinal silhouette is unremarkable. The lungs are free of infiltrates effusions or consolidations. There are no acute osseous changes. Ordering Provider: Obando Ahmad FINAL REPORT Dictated: 03/27/2023 4:20 pm Juan Pablo Spaulding MD, V. Signed (Electronic Signature): 03/27/2023 4:20 pm Signed by: Juan Pablo Spaulding MD, V. Transcribed by: TEREZA Technologist: CECELIA Technical Comments Radiation Dose: Ka,r in mGy = n/a DAP = n/a Normal [place] BUNon 03-26-2023 Urea nitrogen [Mass/Vol] 13 mg/dL Normal 5-21 [facility] Comment on above: Performed By: #### 1 [id number], 1939244, 6922799, 6699600, 2160587, 7694573 ####[facility] [address] [place] [address] CBC w/Indiceson 03-26-2023 Erythrocyte distribution width (RBC) [Ratio] 13.8 % Normal 10.9-14.2 [facility] Comment on above: Performed By: #### 1 3303201, 2595181, 2781221, 0370651, 8049463, 8519169 ####[facility] [address] [place] [address] Hematocrit (Bld) [Volume fraction] 39.6 % Normal 37.7-49.0 [facility] Comment on above: Performed By: #### 1 8782926, 9842398, 2609203, 2553847, 3934177, 1160896 ####[facility] [address] [place] [address] Hemoglobin (Bld) [Mass/Vol] 13.6 g/dL Normal 13.5-17.5 [facility] Comment on above: Performed By: #### 1 1222664, 7838033, 9271221, 9978744, 8651832, 9945619 ####[facility] [address] [place] [address] MCH (RBC) [Entitic mass] 31.5 pg Normal 27.0-34.0 [facility] Comment on above: Performed By: #### 1 4722693, 3062174, 1320920, 1466341, 5291893, 5824319 ####[address] [place] [address] MCHC (RBC) [Mass/Vol] 34.3 g/dL Normal 31.4-36.0 [facility] Comment on above: Performed By: #### 1 5098949, 2872197, 0483883, 0648760, 7721515, 8579218 ####[address] [place] [address] MCV (RBC) [Entitic vol] 91.9 fL Normal 80.0-100.0 [facility] Comment on above: Performed By: #### 1 6795308, 3427690, 1897839, 3945591, 7207499, 1509869 ####[address] [address] Platelet mean volume (Bld) [Entitic vol] 7.8 fL Normal 6.4-10.8 [facility] Comment on above: Performed By: #### 1 2086883, 2120446, 5891844, 7253289, 9629232, 4046357 ####[address] [address] Platelets (Bld) [#/Vol] 224.0 E9/L Normal 150.0-500.0 [facility] Comment on above: Performed By: #### 1 5670414, 6255991, 6666235, 2679327, 2564113, 0824703 ####[address] [address] RBC (Bld) [#/Vol] 4.3 E12/L Normal 4.3-5.9 [facility] Comment on above: Performed By: #### 1 0059423, 2715740, 8341894, 4125539, 1480541, 3442835 ####[address] [address] WBC corrected for nucl RBC Auto (Bld) [#/Vol] 3.3 E9/L Low 4.0-11.0 [facility] Comment on above: Performed By: #### 1 4034393, 9026214, 3012247, 9178689, 1630032, 1764001 ####[place] [address] [place] [address] CHEMISTRYOrdered By: SYSTEM SYSTEM on 03-26-2023 Anion gap [Moles/Vol] 10 mmol/L Normal 6 - 16 mEq/L [facility] Remisol Chloride [Moles/Vol] 107 mmol/L Normal 101 - 1 11 mmol/L [facility] Remisol CO2 [Moles/Vol] 26 mmol/L Normal 21 - 31 mmol/L [facility] Remisol Creatinine [Mass/Vol] 1.0 mg/dL Normal 0.5 - 1.3 mg/dL [facility] Remisol GFR/1.73 sq M.predicted among non-blacks MDRD (S/P/Bld) [Vol rate/Area] 91 mL/min/1.73 m2 Normal >=59mL/min/1 .73 m2 [facility] Chem S Glucose [Mass/Vol] 99 mg/dL Normal 55 - 199 mg/dL [facility] Remisol Potassium [Moles/Vol] 3.8 mmol/L Normal 3.5 - 5.3 mmol/L [facility] Remisol Sodium [Moles/Vol] 139 mmol/L Normal 135 - 145 mmol/L [facility] Remisol Urea nitrogen [Mass/Vol] 13 mg/dL Normal 5 - 21 mg/dL [facility] Remisol Consent for Treatmenton 03-13 Consent for Treatment [id number] .[id number]:127 Normal [place] Creatinineon 03-26-2023 Creatinine [Mass/Vol] 1.0 mg/dL Normal 0.5-1.3 [facility] Comment on above: Performed By: #### 1 [id number], 2837652, 4246427, 2796193, 8888595, 4289041 ####[facility] [address] [place] [address] Glucoseon 03-26-2023 Glucose [Mass/Vol] 99 mg/dL Normal 55-199 [facility] Comment on above: Performed By: #### 1 5047792, 6177562, 5678923, 8193562, 9805913, 4406522 ####[facility] [address] [place] [address] HEMATOLOGYOrdered By: Casandra Ramos on 03-26-2023 Erythrocyte distribution width (RBC) [Ratio] 13.8 % Normal 10.9 - 14.2 % [facility] Hematocrit (Bld) [Volume fraction] 39.6 % Normal 37.7 - 49.0 % [facility] Hemoglobin (Bld) [Mass/Vol] 13.6 g/dL Normal 13.5 - 17.5 gm/dL [facility] MCH (RBC) [Entitic mass] 31.5 pg Normal 27.0 - 34.0 pg [facility] MCHC (RBC) [Mass/Vol] 34.3 g/dL Normal 31.4 - 36.0 gm/dL [facility] MCV (RBC) [Entitic vol] 91.9 fL Normal 80.0 - 100.0 fL [facility] Platelet mean volume (Bld) [Entitic vol] 7.8 fL Normal 6.4 - 10.8 fL [facility] Platelets (Bld) [#/Vol] 224.0 E9/L Normal 150. 0 - 500.0 E9/L [facility] RBC (Bld) [#/Vol] 4.3 E12/L Normal 4.3 - 5.9 E12/L [facility] WBC corrected for nucl RBC Auto (Bld) [#/Vol] 3.3 E9/L Low 4.0 - 11.0 E9/L [facility] Lyteson 03-26-2023 Anion gap [Moles/Vol] 10 mmol/L Normal 6-16 [facility] Comment on above: Performed By: #### 1 7521293, 4005932, 9600058, 7262796, 0935829, 2231511 ####[facility] [address] [place] [address] Chloride [Moles/Vol] 107 mmol/L Normal 101-111 [facility] Comment on above: Performed By: #### 1 8506804, 7737637, 4453626, 8121679, 9362055, 8889040 ####[facility] [address] [place] [address] CO2 [Moles/Vol] 26 mmol/L Normal 21-31 [facility] Comment on above: Performed By: #### 1 8361947, 0498702, 6010098, 4914286, 7665049, 6962168 ####[facility] [address] [place] [address] Potassium [Moles/Vol] 3.8 mmol/L Normal 3.5-5.3 [facility] Comment on above: Performed By: #### 1 2936656, 8410230, 7922989, 5783857, 1541913, 4875473 ####[facility] [address] [place] [address] Sodium [Moles/Vol] 139 mmol/L Normal 135-145 [facility] Comment on above: Performed By: #### 1 2379915, 5575649, 1594989, 5844809, 7553133, 3169888 ####[facility] [address] [place] [address] eGFRon 03-26-2023 GFR/1.73 sq M.predicted among non-blacks MDRD (S/P/Bld) [Vol rate/Area] 91 mL/min/1.73 m2 Normal >=59 [facility] Comment on above: Order Comment: Order added by Discern Expert. Result Comment: Spudder sybil kidney disease could be indicated at eGFR's of less than 60 mL/min/1.73m2. Kidney failure is indicated at less than 15 mL/min/1.73m2. Performed By: #### 1 4172291, 6102483, 6052525, 3720203, 3506939, 2978375 ####[facility] [address] [place] [address] XR shoulder RT min 2V*on XR shoulder RT min 2V* [facility] [address] [address] XRay Report Signed Patient: Magan Lynn MR#: [id number] : 1970 Acct:[id number] Age/Sex: 52 / M ADM Date: 02/07/23 Loc: XD Room: Type: [facility] Attending Dr: Luisana Stubbs DO Copies to: Luisana Stubbs DO Ordering Provider: Luisana Stubbs DO Date of Service: 02/07/23 XR/XR shoulder RT min 2V*: PAIN 3 views right shoulder plain film HISTORY: Right shoulder pain for one month COMPARISON: None ACUTE FINDINGS: None DEGENERATIVE CHANGE: Unremarkable SOFT TISSUE FINDINGS: Unremarkable JOINT EFFUSION: None POSTOP CHANGES: None BONY MINERALIZATION: Adequate XR/XR shoulder RT min 2V* IMPRESSION: Unremarkable exam Impression dictated by: South Rocha M.D.02/07/2023 11:09 AM Dictation Location: [facility]12 Transcribed By: [facility] 02/07/23 1109 Dictated By: South Rocha DO 02/07/23 1106 Signed By: 02/07/23 1109 Normal [facility] Apolipoprotein Bon Apolipoprotein B [Mass/Vol] 103 mg/dL High <90 mg/dL [facility] Other Vital Signs Date Time Vital Sign Value Performing Clinician Facility 04-13-2023 11:46-0400 Heart rate 63 /min Kwasi Johnson [facility] 04-13-2023 11:46-0400 SaO2% (BldA) [Mass fraction] 97 % Kwasi Johnson [facility] 04-13-2023 11:45-0400 Respiratory rate 16 /min Kwasi Johnson [facility] 04-13-2023 11:44-0400 Body temperature 97.34 [degF] Kwasi Johnson [facility] 04-13-2023 11:44-0400 Blood Pressure Location Kwasi Johnson [facility] 04-13-2023 11:44-0400 Diastolic blood pressure 97 mm[Hg] Kwasi Johnson [facility] 04-13-2023 11:44-0400 Mean blood pressure 118 mm[Hg] Kwasi Johnson [facility] 04-13-2023 11:44-0400 Systolic blood pressure 158 mm[Hg] Kwasi Johnson [facility] 04-13-2023 10:26-0400 Heart rate 60 /min Kwasi Johnson [facility] 04-13-2023 10:26-0400 SaO2% (BldA) [Mass fraction] 96 % Kwasi Johnson [facility] 04-13-2023 10:26-0400 Respiratory rate 14 /min Kwasi Johnson [facility] 04-13-2023 10:25-0400 Blood Pressure Location Kwasi Johnson [facility] 04-13-2023 10:25-0400 Diastolic blood pressure 88 mm[Hg] Kwasi Johnson [facility] 04-13-2023 10:25-0400 Mean blood pressure 105 mm[Hg] Kwasi Johnson [facility] 04-13-2023 10:25-0400 Systolic blood pressure 138 mm[Hg] Kwasi Johnson [facility] 04-13-2023 10:16-0400 Body temperature 97.7 [degF] Kwasi Johnson [facility] 04-13-2023 10:16-0400 Diastolic blood pressure 92 mm[Hg] Kwasi Johnson [facility] 04-13-2023 10:16-0400 Heart rate 55 /min Kwasi Johnson [facility] 04-13-2023 10:16-0400 Mean blood pressure 107 mm[Hg] Kwasi Johnson [facility] 04-13-2023 10:16-0400 Respiratory rate 12 /min Kwasi Johnson [facility] 04-13-2023 10:16-0400 SaO2% (BldA) [Mass fraction] 94 % Kwasi Johnson [facility] 04-13-2023 10:16-0400 Systolic blood pressure 138 mm[Hg] Kwasi Johnson [facility] 04-13-2023 10:05-0400 Respiratory rate 18 /min Kwasi Johnson [facility] 04-13-2023 10:00-0400 Respiratory rate 11 /min Kwasi Johnson [facility] 04-13-2023 09:56-0400 Mean blood pressure 105 mm[Hg] Kwasi Johnson [facility] 04-13-2023 09:51-0400 Blood Pressure Location Kwasi Johnson [facility] 04-13-2023 09:51-0400 Body temperature 97.52 [degF] Kwasi Johnson [facility] 04-13-2023 06:08-0400 Mean blood pressure 104 mm[Hg] Kwasi Johnson [facility] 04-13-2023 06:08-0400 Heart rate 74 /min Kwasi Johnson [facility] 04-13-2023 06:07-0400 Respiratory rate 16 /min Kwasi Johnson [facility] 03-26-2023 09:48-0400 Diastolic blood pressure 81 mm[Hg] Kwasi Johnson [facility] 03-26-2023 09:48-0400 Heart rate 80 /min Kwasi Johnson [facility] 03-26-2023 09:48-0400 Mean blood pressure 98 mm[Hg] Kwasi Johnson [facility] 03-26-2023 09:48-0400 Systolic blood pressure 133 mm[Hg] Kwasi Johnson [facility] 03-26-2023 09:48-0400 Heart rate 77 /min Kwasi Johnson [facility] 03-26-2023 09:48-0400 SaO2% (BldA) [Mass fraction] 98 % Kwasi Johnson [facility] 03-26-2023 09:48-0400 Body temperature 98.42 [degF] Kwasi Johnson [facility] 03-26-2023 09:48-0400 Diastolic blood pressure 81 mm[Hg] Kwasi Johnson [facility] 03-26-2023 09:48-0400 Mean blood pressure 104 mm[Hg] Kwasi Johnson [facility] 03-26-2023 09:48-0400 Systolic blood pressure 151 mm[Hg] Kwasi Johnson [facility] 09-19-2022 08:15-0500 Body height 180.34 cm Salvador Marx Other [facility] 09-19-2022 08:15-0500 Body mass index (BMI) [Ratio] 34.29 kg/m2 Salvador Marx Other [facility] 09-19-2022 08:15-0500 Body weight 111.54 kg Salvador Marx Other [facility] 09-19-2022 08:15-0500 Diastolic blood pressure 84 mm[Hg] Salvador Marx Other [facility] 09-19-2022 08:15-0500 Respiratory rate 18 /min Salvador Marx Other [facility] 09-19-2022 08:15-0500 SaO2% (BldA) [Mass fraction] 99 % Salvador Marx Other [facility] 09-19-2022 08:15-0500 Systolic blood pressure 130 mm[Hg] Salvador Koromadiff Other [facility] 06-19-2022 08:15-0500 Body height 180.34 cm Salvador Marx Other [facility] 06-19-2022 08:15-0500 Body mass index (BMI) [Ratio] 34.47 kg/m2 Salvador Marx Other [facility] 06-19-2022 08:15-0500 Body weight 112.13 kg Salvador Marx Other [facility] 06-19-2022 08:15-0500 Diastolic blood pressure 84 mm[Hg] Salvador Marx Other [facility] 06-19-2022 08:15-0500 Respiratory rate 18 /min Salvador Marx Other [facility] Other 06-19-2022 08:15-0500 SaO2% (BldA) [Mass fraction] 100 % Salvador Koromadiff Other [facility] Other 06-19-2022 08:15-0500 Systolic blood pressure 134 mm[Hg] Salvador Marx Other [facility] 03-01-2022 09:15-0400 Body height 180.34 cm Rylee Fitt Other [facility] 03-01-2022 09:15-0400 Body mass index (BMI) [Ratio] 34.53 kg/m2 Rylee Fitt Other [facility] 03-01-2022 09:15-0400 Body weight 112.31 kg Rylee Fitt Other [facility] 12-21-2021 08:45-0400 Body height 180.34 cm Salvador Marx Other [facility] 12-21-2021 08:45-0400 Body mass index (BMI) [Ratio] 35.25 kg/m2 Salvador Marx Other [facility] 12-21-2021 08:45-0400 Body weight 114.67 kg Salvador Marx Other [facility] 12-21-2021 08:45-0400 Diastolic blood pressure 84 mm[Hg] Salvador Marx Other [facility] 12-21-2021 08:45-0400 Respiratory rate 18 /min Salvador Marx Other [facility] 12-21-2021 08:45-0400 SaO2% (BldA) [Mass fraction] 100 % Salvador Marx Other [facility] 12-21-2021 08:45-0400 Systolic blood pressure 128 mm[Hg] Salvador Marx Other [facility] 11-08-2021 09:15-0400 Body height 180.34 cm Rylee Fitt Other [facility] 11-08-2021 09:15-0400 Body mass index (BMI) [Ratio] 35.66 kg/m2 Rylee Fitt Other [facility] 11-08-2021 09:15-0400 Body weight 115.99 kg Rylee Fitt Other [facility] 09-28-2021 09:15-0500 Body height 180.34 cm Rylee Fitt Other [facility] 09-28-2021 09:15-0500 Body mass index (BMI) [Ratio] 35.77 kg/m2 Rylee Fitt Other [facility] 09-28-2021 09:15-0500 Body weight 116.35 kg Rylee Fitt Other [facility] 08-30-2021 12:00-0500 Body height 180.34 cm Salvador Marx Other [facility] Other 08-30-2021 12:00-0500 Body mass index (BMI) [Ratio] 35.73 kg/m2 Salvador Marx Other [facility] 08-30-2021 12:00-0500 Body weight 116.21 kg Salvadorperfecto Koromadiff Other [facility] Other 08-30-2021 12:00-0500 Diastolic blood pressure 77 mm[Hg] Salvador Marx Other [facility] 08-30-2021 12:00-0500 Respiratory rate 18 /min Salvador Marx Other [facility] Other 08-30-2021 12:00-0500 SaO2% (BldA) [Mass fraction] 100 % Salvador Marx Other [facility] Other 08-30-2021 12:00-0500 Systolic blood pressure 124 mm[Hg] Salvador Marx Other [facility] Other 07-27-2021 09:15-0500 Body height 180.34 cm Rylee Tituskassandra Other [facility] Other 07-27-2021 09:15-0500 Body mass index (BMI) [Ratio] 35.58 kg/m2 Rylee Fitt Other [facility] Other 07-27-2021 09:15-0500 Body weight 115.71 kg Rylee Fitt Other [facility] 06-15-2021 10:15-0400 Body height 180.34 cm Salvador Marx Jr. Other [facility] Other 06-15-2021 10:15-0400 Body mass index (BMI) [Ratio] 35.99 kg/m2 Salvador Marx Jr. Other [facility] Other 06-15-2021 10:15-0400 Body weight 117.07 kg Salvador Marx . Other [facility] Other 06-15-2021 10:15-0400 Diastolic blood pressure 77 mm[Hg] Salvador Marx . Other [facility] Other 06-15-2021 10:15-0400 Respiratory rate 18 /min Salvador Koromamao Motta Other [facility] Other 06-15-2021 10:15-0400 SaO2% (BldA) [Mass fraction] 100 % Salvador Koromamao Motta Other [facility] Other 06-15-2021 10:15-0400 Systolic blood pressure 123 mm[Hg] Salvador Bautistayusuf Motta Other [facility] Other 06-01-2021 09:15-0400 Body height 180.34 cm Rylee Berger Other [facility] Other 06-01-2021 09:15-0400 Body mass index (BMI) [Ratio] 36.58 kg/m2 Rylee Fitt Other [facility] 06-01-2021 09:15-0400 Body weight 118.98 kg Rylee Fitt Other [facility] Other 05-09-2021 13:45-0400 Body height 180.34 cm Salvador Marx . Other [facility] Other 05-09-2021 13:45-0400 Body mass index (BMI) [Ratio] 36.98 kg/m2 Salvador Koromamao Motta Other [facility] Other 05-09-2021 13:45-0400 Body weight 120.29 kg Salvador Koromamao Motta Other [facility] Other 05-09-2021 13:45-0400 Diastolic blood pressure 81 mm[Hg] Salvador Koromamao Motta Other [facility] Other 05-09-2021 13:45-0400 Respiratory rate 18 /min Salvador Francisco J Motta Other [facility] Other 05-09-2021 13:45-0400 SaO2% (BldA) [Mass fraction] 99 % Salvadorperfecto Marx Jr. Other [facility] Other 05-09-2021 13:45-0400 Systolic blood pressure 125 mm[Hg] Salvador Bautistayusuf Motta Other [facility] Other Encounters Encounter Date Encounter Type Care Provider Facility Start: 01-15-2024 End: 01-15-2024 Patient encounter procedure DO Luisana Bunting Work Phone: [facility] [place] Work Phone: Start: 01-15-2024 End: 01-15-2024 ambulatory Luisana Bunting Facility:[facility] Start: 01-08-2024 End: 01-08-2024 Patient encounter procedure DO Luisana Bunting Work Phone: [facility] [place] Work Phone: Start: 01-08-2024 End: 01-08-2024 ambulatory DO Luisana Bunting Work Phone: [facility] Work Phone: Start: 09-04-2023 End: 09-04-2023 ambulatory KWASI Khan ALEX Not Available Start: 07-03-2023 End: 07-03-2023 ambulatory KWASI Khan ALEX Not Available Start: 04-13-2023 End: 04-13-2023 ambulatory Kwasichauncey Johnson Facility[place] Start: 04-13-2023 End: 04-13-2023 Admission to same day surgery center Kwasi A Alex [facility] Start: 03-26-2023 End: 03-27-2023 ambulatory Kwasi Khan Alex Facility:[facility] Start: 03-26-2023 End: 03-26-2023 Patient encounter procedure Kwasi A Alex [facility] Start: 02-07-2023 End: 02-07-2023 Patient encounter procedure DO Luisana Bunting Work Phone: [facility] Work Phone: Start: 02-07-2023 End: 02-07-2023 ambulatory DO Luisana Bunting Work Phone: [facility] Work Phone: Start: 09-19-2022 End: 09-19-2022 ambulatory Salvador Marx Other [facility] Other Start: 09-19-2022 Follow-up encounter Salvador sims [facility] Start: 06-19-2022 End: 06-19-2022 ambulatory Salvador Marx Other [facility] Other Start: 06-19-2022 Follow-up encounter Salvador sims [facility] Start: 03-01-2022 ([facility] FU) [facility] F/ U [employer] Area [employer] Rylee Berger [facility] Start: 03-01-2022 End: 03-01-2022 ambulatory Rylee Fitt Other [facility] Other Start: 12-21-2021 End: 12-21-2021 ambulatory Salvador Marx Other [facility] Other Start: 12-21-2021 Follow-up encounter Salvador sims [facility] Start: 11-08-2021 ([facility] FU) [facility] F/ U [employer] Area Manager Rylee Tachokassandra [facility] Start: 11-08-2021 End: 11-08-2021 ambulatory Rylee Fitt Other [facility] Other Start: 10-25-2021 End: 10-25-2021 ambulatory Salvador Marx Other [facility] Other Start: 10-25-2021 Telephone encounter Salvador sims [facility] Start: 09-28-2021 ([facility] FU) [facility] F/ U [employer] Area Manager Rylee Tachot [facility] Start: 09-28-2021 End: 09-28-2021 ambulatory Rylee Fitt Other [facility] Other Start: 08-30-2021 End: 08-30-2021 ambulatory Salvador Marx Other [facility] Other Start: 08-30-2021 Follow-up encounter Salvador sims [facility] Start: 07-27-2021 ([facility] FU) [facility] F/ U [employer] Area Manager Rylee Fitt [facility] Start: 07-27-2021 End: 07-27-2021 ambulatory Rylee Fitt Other [facility] Other Start: 07-12-2021 End: 07-12-2021 ambulatory Salvador Marx Jr. Other [facility] Other Start: 07-12-2021 Telephone encounter Salvador jones [facility] Start: 06-15-2021 End: 06-15-2021 ambulatory Salvador Marx Jr. Other [facility] Other Start: 06-15-2021 Follow-up encounter Salvador jones [facility] Start: 06-01-2021 ([facility] FU) [facility] F/ U [employer] Area Manager Rylee Berger [facility] Start: 05-09-2021 Follow-up encounter Salvador jones [facility] Start: 10-15-2017 Ambulatory SHAHLA BUTCHER Facility:[id number] Start: 10-15-2017 Ambulatory Facility:[id number] Procedures Date Procedure Procedure Detail Performing Clinician Start: 04-13-2023 Repair of musculoten dinous cuff of shoulder Kwasi Johnson Start: 02-07-2023 Plain X-ray of right shoulder DO Luisana Stubbs Work Phone: Laboratory test resu lt abnormal Salvador Marx Jr. Other Torsion of testis (disorder) Kwasi Johnson Plan of Treatment Date Care Activity Detail Author Start: 01-15-2024 [facility] Testosterone Free [M ass/volume] in Serum or Plasma [facility] Immunizations Immunization Date Immunization Notes Care Provider Fa cility 09-22-2019 tetanus toxoid, redu fara diphtheria toxoid, and acellular pertussis vaccine, adsorbed Salvador Marx Jr. Other [facility] Payers Date Payer Category Payer Private Health Insurance [id number] 2023 Self-pay [id number] 2016 Unknown [id number]. [id number] 1970 Unknown [id number] 2.16.8 [id number] 1970 Unknown [id number] 2.16.8 [id number] 1970 Unknown [id number] 2.16.84 [id number] 1970 Unknown [id number] Unknown [id number] Unknown [id number] 2.16.8 [id number] Unknown [id number] 2.16.8 [id number] Unknown [id number] 2.16.8 [id number] Social History Date Type Detail Facility Unknown if ever smoked [facility] Other Sex Assigned At [facility] Start: 1970 Sex Assigned At Male F [facility] Tobacco smoking status No Smokin g Status Entered [facility] Start: 09-17-2017 Tobacco smoking stat us WIIS Never smoked tobacco (finding) [facility] Medical Equipment Procedure Code Equipment Code Equipment Origin al Text Equipment Identifier Dates SHOULDER ARTHROS COPY W/ POSSIBLE REPAIR Unknown 04/13/23 Unknown Unknown [id number] [facility] Start: 04-13-2023 Functional Status Date Assessment Result Facility 03-26-2023 Functional Status No [facility] Clinical Notes 05-09-2021 to 04-13-2023 Note Date & Type Note Facility 04-13-2023 Hospital Discharg e instructions Patient Education 04/13/2023 09:54:25 Shoulder Cryocuff Patient Instructions - FT (CUSTOM) 04/13/2023 09:54:22 Post Op Patient Instructions - FT (CUSTOM) 04/13/2023 09:41:13 Cheikh Johnson - After Your Shoulder Arthroscopy (Custom) [place], [place] [facility] AFTER YOUR SHOULDER ARTHROSCOPY 1.Diet: Begin with a liquid diet and advance to your normal diet as tolerated. 2.Activity: You may remove your sling for bathing and to perform gentle range of motion exercises for the hand, wrist, and elbow. Bend and straighten your elbow and wrist several times per day to minimize stiffness. Keep your elbow in close to your side when performing these exercises. Do not move your shoulder until instructed by your surgeon. Swelling after surgery is normal and this will gradually decrease over time. All sports activities are discouraged, at least until your first post-operative visit at which time we will discuss how and when to resume sports. 3. Driving: Driving is legal. If you are involved in an accident, you must be able to prove that you maintained full control of your vehicle. For this reason, it is advised that you do not drive until your strength returns. You should not operate a vehicle or heavy machinery if you are taking narcotic pain medication. 4. Pain: If pain persists despite rest, elevation, and medication, contact your surgeon. You will be given a prescription for pain medications prior to leaving the hospital. Please inform us of any known drug allergy. If you have any problems with the medication, it should be discontinued and our office notified. The sensation of splashing of fluid inside the joint is not cause for concern. It represents residual fluids from surgery and they will be absorbed. Elevation of the arm and application of an ice pack will minimize swelling and discomfort in the first 48 hours after surgery. 5. Bandage: Soft compression dressing has been applied to your shoulder. This dressing should be comfortable and absorb any leakage of fluid or blood from your operated shoulder. Although the dressing may become moist or blood stained, this is not usually a cause for concern. If this persists, notify your surgeon. You may remove the dressing 48 hours after your surgery. If you have a bandage in your armpit, leave this in place until follow up. Apply betadine and band-aids to the small incisions once or twice daily as needed. 6.Incisions: The portals of entry may be sore and develop bruising over the next several days. The bruising eventually resolves and does not require any special care. Do not apply creams or lotions to your shoulder. Your portals will heal well on their own. 7.Bathing: You may shower 48 hours after surgery. Bathing or soaking in water should be avoided until your first post-operative visit. 8.Precautions: If you develop fever (101 degrees or above), increasing pain (not relieved by rest, elevation, ice, and medication as prescribed), redness or swelling in your shoulder or arm, please contact the office or the hospital. If you notice increased drainage from the operative portals after the third day, this should also be reported. 9.Return Visit: Your first post-operative follow-up appointment is generally between 7 and 14 days after discharge from the hospital. You will be given an appointment card with your appointment information. Do not hesitate to call the office or the hospital if any problems or questions arise before your appointment. Kwasi Johnson DO [facility] [address] [place], [place] [address] Reviewed: Follow Up Care 03/15/2023 15:38:25 With:Kwasi Johnson DO, ORT Address: [address] [place] [address]- When: Unknown [facility] 04-12-2023 Note [id number] [place] 09-19-2022 Evaluation note Encounter Date Diagnosis Assessment Notes Sep, Insomnia (ICD-10 - G47.00) Sep, Hyperlipidemia, unspecified hyperlipidemia type (ICD-10 - E78.5) Sep, Obesity (BMI 30.0-34.9) (ICD-10 - E66.9) [facility] Other 11-07-2022 Evaluation note* Encounter Date Diagnosis Assessment Notes Treatment Notes Treatment Clinical Notes Jun, Obesity (BMI 30.0-34.9) (ICD-10 - E66.9) Jun, Insomnia (ICD-10 - G47.00) Jun, Hyperlipidemia, unspecified hyperlipidemia type (ICD-10 - E78.5) [facility] Other 07-20-2022 Evaluation note* Encounter Date Diagnosis Assessment Notes Treatment Notes Treatment Clinical Notes Feb, Obesity (ICD-10 - E66.9) Feb, BMI 34.0-34.9,adult (ICD-10 - Z68.34) Feb, Other Summary of Visi t: (A) reviewed successes, challenges and sustainability (B) discussed snacks to have on days he is too busy for lunch Patient set the following goals: - continue to meal prep lunch and dinner MET; continue [facility] Other 05-11-2022 Evaluation note* Encounter Date Diagnosis Assessment Notes Treatment Notes Treatment Clinical Notes December, Obesity (BMI 35.0-39.9 without comorbidity) (ICD-10 - E66.9) December, Insomnia (ICD-10 - G47.00) December, Hyperlipidemia, unspecified hyperlipidemia type (ICD-10 - E78.5) [facility] Other 03-29-2022 Evaluation note* Encounter Date Diagnosis Assessment Notes Treatment Notes Treatment Clinical Notes Oct, Obesity (ICD-10 - E66.9) Oct, BMI 37.0-37.9, adult (ICD-10 - Z68.37) Oct, Other Summary of Visit: (A) reviewed successes, challenges and sustainability (B) discussed ways to add flavor with minimal calories (C) rec'd decreasing calories by 100-200 kcal/day to continue weight loss Patient set the following goals: - continue to meal prep lunch and dinner MET; continue - continue to log foods in [employer] 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 (Inspect Manager[employer] Pal PARTIALLY MET; continue w/ goal of doing a little more frequently the next couple weeks [facility] Other 01-18-2022 Evaluation note* Encounter Date Diagnosis Assessment Notes Treatment Notes Treatment Clinical Notes Aug, Obesity (BMI 35.0-39.9 without comorbidity) (ICD-10 - E66.9) Aug, Insomnia (ICD-10 - G47.00) Aug, Hyperlipidemia, unspecified hyperlipidemia type (ICD-10 - E78.5) [facility] Other 12-15-2021 Evaluation note* Encounter Date Diagnosis Assessment Notes Treatment Notes Treatment Clinical Notes Jul, Obesity (ICD-10 - E66.9) Jul, BMI 37.0-37.9, adult (ICD-10 - Z68.37) Jul, Other Summary of Visit: (A) reviewed successes, challenges and upcoming holidays (B) discussed ways to simply add variety such as different proteins, seasoning, sauces, snacks Patient set the following goals: - continue to meal prep lunch and dinner MET; continue - continue to log foods in [employer] (Inspect Manager[employer] Pal PARTIALLY MET; continue [facility] Other 11-03-2021 Evaluation note* Encounter Date Diagnosis Assessment Notes Treatment Notes Treatment Clinical Notes Jun, Hyperlipidemia, unspecified hyperlipidemia type (ICD-10 - E78.5) Jun, Obesity (BMI 35.0-39.9 without comorbidity) (ICD-10 - E66.9) Jun, Insomnia (ICD-10 - G47.00) [facility] Other 10-20-2021 Evaluation note* Encounter Date Diagnosis Assessment Notes Treatment Notes Treatment Clinical Notes May, Obesity (ICD-10 - E66.9) May, BMI 37.0-37.9, adult (ICD-10 - Z68.37) May, Other Summary of Visit: (A) reviewed successes, challenges and goals (B) briefly reviewed stress management and navigating challenging weeks Patient set the following goals: - continue to meal prep lunch and dinner MET; continue - continue to log foods in [employer] Pal PARTIALLY MET; continue [facility] Other 09-27-2021 Evaluation note* Encounter Date Diagnosis Assessment Notes Treatment Notes Treatment Clinical Notes Apr, Hyperlipidemia, unspecified hyperlipidemia type (ICD-10 - E78.5) Apr, Obesity (BMI 35.0-39.9 without comorbidity) (ICD-10 - E66.9) Apr, Insomnia (ICD-10 - G47.00) [facility] Other Evaluation + Plan note Future Appointments Appointment Date:04/13/2023 07:30:00 AM Scheduled Provider: Location:[facility] Other Evaluation noteNo assessment information available [facility] Work Phone: [facility] general Narrative - Reported* Type Description Date Surgical History Torsion of left testicle 1993 Hospitalization History See above [facility] Other Hospital course Narrative No data available for this section [facility] No data available for this section [facility] No data available for this section [facility] Summary Purpose Family History Relationship Condition Age at Onset Recorded Date/T krista father Unknown Malignant neoplasm Unknown grandparent Heart disease Unknown Not Specified Family history of mental disorder Unknow n Hypertension Unknown Diabetes mellitus Unknown Paranoid schizophrenia Unknown Advance Directives Advance Directive Response Recorded Date/ Time Advance Directives No July 1:17pm Chief Complaint and Reason for Visit Chief Complaint Right should pain Chief Complaint z79.89 z83.3 z83.49 z00.00 e78.2 Chief Complaint z79.89 z83.3 z83.49 z00.00 e78.2 R53.83 Additional Source Comments (unrecognized sect ion and content) No Status Records FoundNo Status Records FoundNo Status Records FoundNo Status Records FoundNo Status Records Found INFORMATION SOURCE (unrecogn ized section and content) DATE CREATED AUTHOR 02/01/2018 [facility] DATE CREATED AUTHOR AUTHOR'S ORGANIZ ATION 02/14/2018 [facility] DATE CREATED AUTHOR AUTHOR'S ORGANIZ ATION 04/20/2023 [facility] DATE CREATED AUTHOR AUTHOR'S ORGANIZ ATION 09/05/2023 [facility] DATE CREATED AUTHOR AUTHOR'S ORGANIZ ATION 01/16/2024 [facility] REASON FOR VISIT (unrecogniz ed section and content) WMN Dr follow upWM RD follow upWMN Dr follow upDLC RX: TrazodoneWM RD follow upWMN Dr follow upWM RD follow upDLC rescheduleWM RD follow upWMN Dr follow upWMN RD follow upWMN Dr follow upWMN Dr. f/u Care Teams (unrecognized sec tion and content) Team Status: Active Member Role Status Dates Luisana Stubbs , DO Primary Care Provider Active Team Status: Inactive Member Role Status Dates Luisana Bunting , DO Primary Care Provider, Attending P pushpa Active Team Status: Inactive Member Role Status Dates Luisana Bunting , DO Primary Care Provide r, Attending Provider Active Start: January 08, 2024 End: January 08, 2024 Team Status: Inactive Member Role Status Dates Luisana Bunting , DO Primary Care Provide r, Attending Provider Active Start: January 15, 2024 End: January 15, 2024 Goals (unrecognized section and content) Goals may be documented in a n alternate section FOR RECORDS PERTAINING TO PATIENTS WHO ARE OR HAVE BEEN ENROLLED IN A CHEMICAL DEPENDENCY/SUBSTANCEABUSE PROGRAM, SOME INFORMATION MAY BE OMITTED. This clinical summary was aggregated from multiple sources. Caution should be exercised in using it in the provision of clinical care. This summary normalizes information from multiple sources, and as a consequence, information in this document may materially change the coding, format and clinical context of patient data. In addition, data may be omitted in some cases. CLINICAL DECISIONS SHOULD BE BASED ON THE PRIMARY CLINICAL RECORDS. [facility]. provides no warranty or guarantee of the accuracy or completeness of information in this document.
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
[2024-01-20] MEDS: HYDROCODONE/ACET 5-325 MG TABLET 2 TAB PO (01:05)
[2024-01-20] MEDS: LIDOCAINE 2% JELLY 20 ML UR (01:06)
[2024-01-20] MEDS: SODIUM CHLORIDE 0.9% IRRIG SOLUTION 1,000 ML BOTTLE 1000 ML IRR (01:40)
[2024-01-20] MEDS: SILVER SULFADIAZINE 1% CREAM 25 GM TUBE 1 APPLIC TOPICAL (02:09)
== END 2024-01-20 01:55 | disposition home or self-care (01) ==
PROVIDERS: Emergency Provider Emergency Medicine; Family Provider Family Medicine; PCP Family Medicine
DX: T24.232A Burn of second degree of left lower leg, initial encounter (principal); X03.8XXA Other exposure to controlled fire, not in building or structure, initial encounter
CPT/HCPCS: 99284